=== PATIENT | male | born 1965 | race Caucasian/White ===

== ENCOUNTER 2019-11-28 08:48 | Outpatient (CLI) | payer BC, SELFPAY ==
--- NOTE | 2019-11-28 10:00 | EST_ITS ---
Patient Info Name: Anil Astudillo Age: 54 years : 1965 Gender: Male Ht: 71 in Wt: 210 lbs BSA: 2.21 m2 Exam Date: 11/28/2019 9:57 AM Exam Location: [facility] Stress Patient Status: Outpatient Admit Date: 11/28/2019 Staff Ordering Physician: Kuldip Benitez PA-C Attending Provider: Kuldip Benitez PA-C Exercise Technologist: Charlotte Hennessy RDCS Exercise Physician: Herb Foreman DO Exam Type: CA stress test treadmill Study Info Indications R07.89 - Other chest pain A treadmill exercise stress test was performed. Summary 1. 1. Negative Eric exercise stress test for ischemic ST changes by ECG criteria. 2. 2. Good functional capacity, achieving 12 METs of workload. 3. 3. Appropriate HR response to exercise. 4. 4. Appropriate HR recovery at 1 minute post exercise. 5. 5. No imaging with stress testing. 6. 6. Patient informed of the above results. Protocol: Eric Stress ECG Details Stage: REST Duration (min): 4 min : 23 sec Speed (mph): 0.0 Grade (%): 0 HR (bpm): 66 SBP (mmHg): 118 DBP (mmHg): 87 METS: --- Stage: REST Duration (min): 4 min : 49 sec Speed (mph): 0.0 Grade (%): 0 HR (bpm): 65 SBP (mmHg): 118 DBP (mmHg): 87 METS: --- Stage: REST Duration (min): 10 min : 40 sec Speed (mph): 0.0 Grade (%): 0 HR (bpm): 79 SBP (mmHg): 118 DBP (mmHg): 87 METS: --- Stage: STAGE 1 Duration (min): 1 min : 0 sec Speed (mph): 1.7 Grade (%): 10 HR (bpm): 102 SBP (mmHg): 118 DBP (mmHg): 87 METS: --- Stage: STAGE 1 Duration (min): 2 min : 0 sec Speed (mph): 1.7 Grade (%): 10 HR (bpm): 106 SBP (mmHg): 118 DBP (mmHg): 87 METS: --- Stage: STAGE 1 Duration (min): 3 min : 0 sec Speed (mph): 1.7 Grade (%): 10 HR (bpm): 105 SBP (mmHg): 128 DBP (mmHg): 82 METS: --- Stage: STAGE 2 Duration (min): 1 min : 0 sec Speed (mph): 2.5 Grade (%): 12 HR (bpm): 115 SBP (mmHg): 128 DBP (mmHg): 82 METS: --- Stage: STAGE 2 Duration (min): 2 min : 0 sec Speed (mph): 2.5 Grade (%): 12 HR (bpm): 112 SBP (mmHg): 156 DBP (mmHg): 72 METS: --- Stage: STAGE 2 Duration (min): 3 min : 0 sec Speed (mph): 2.5 Grade (%): 12 HR (bpm): 119 SBP (mmHg): 156 DBP (mmHg): 72 METS: --- Stage: STAGE 3 Duration (min): 1 min : 0 sec Speed (mph): 3.4 Grade (%): 14 HR (bpm): 130 SBP (mmHg): 153 DBP (mmHg): 86 METS: --- Stage: STAGE 3 Duration (min): 2 min : 0 sec Speed (mph): 3.4 Grade (%): 14 HR (bpm): 138 SBP (mmHg): 153 DBP (mmHg): 86 METS: --- Stage: STAGE 3 Duration (min): 3 min : 0 sec Speed (mph): 3.4 Grade (%): 14 HR (bpm): 144 SBP (mmHg): 156 DBP (mmHg): 102 METS: --- Stage: STAGE 4 Duration (min): 1 min : 0 sec Speed (mph): 4.2
== END 2019-11-28 08:49 | disposition home or self-care (01) ==
LOC: ANHCARD 08:55
PROVIDERS: PCP Internal Medicine; Visit Provider Physician Assistant
DX: R07.89 Other chest pain (principal)
CPT/HCPCS: 93017

== ENCOUNTER 2021-01-07 09:29 | Outpatient (CLI) | payer BC, SELFPAY | END 2021-01-07 09:30 | disposition home or self-care (01) | LOC: ANHCOVIDVC 09:29 | PROVIDERS: PCP Internal Medicine | DX: Z23 Encounter for immunization (principal) | CPT/HCPCS: 0001A; 91300 ==

== ENCOUNTER 2021-01-28 09:29 | Outpatient (CLI) | payer BC, SELFPAY | END 2021-01-28 09:30 | disposition home or self-care (01) | LOC: ANHCOVIDVC 09:29 | PROVIDERS: PCP Internal Medicine | DX: Z23 Encounter for immunization (principal) | CPT/HCPCS: 0002A; 91300 ==

== ENCOUNTER 2023-03-17 19:14 | Emergency (ER) | payer BC, SELFPAY ==
[2023-03-17 19:21] VITALS: BP 140/92; PULSE 89; RESP 18; TEMP 37; O2SAT 98
--- NOTE | 2023-03-17 19:24 | ED.MALEGU ---
HPI - Male Genitourinary General Chief complaint: Urogenital-Male Stated complaint: Male Urogenital Source: patient Mode of arrival: ambulatory Limitations: no limitations History of Present Illness HPI Narrative: Patient is a 57-year-old male who presents with intermittent flank pain and blood in urine since . Patient states morning he noticed pink tinged urine in the toilet. He moved his daughter that day and was having low back pain and increasingly dark urine throughout the day. Sunday he noticed to clots in urine. Patient called primary an urologist on Sunday but they do not return to school until late in the afternoon. Patient states since clots passed his urine has been clear and has not had any pain until this evening. Reports 1 episode of left low back pain that has since subsided. Denies any fever, chills, nausea, vomiting. Related Data Home Medications Medication Instructions Recorded Confirmed aspirin 81 mg tablet,delayed 81 mg PO DAILY 09/17/19 03/17/23 release (Adult Low Dose Aspirin) ascorbic acid (vitamin C) 500 mg 500 mg PO DAILY 09/07/21 01/29/23 capsule multivitamin 1 tablet PO DAILY 09/07/21 03/17/23 cholecalciferol (vitamin D3) 10 10 mcg PO DAILY 03/14/22 03/17/23 mcg (400 unit) capsule Allergies Allergy/AdvReac Type Severity Reaction Status Date / Time No Known Allergies Allergy Verified 03/17/23 19:25 Review of Systems Review of Systems: All systems reviewed & are unremarkable except as noted in HPI and below Constitutional: Constitutional: Denies chills, Denies fever(s), Denies headache(s), Denies malaise and Denies weakness Eyes: Eyes: Denies change in vision, Denies eye discharge and Denies irritation ENT: Denies otalgia, Denies headache(s), Denies nasal congestion, Denies nasal discharge, Denies sinus pain and Denies sore throat Cardiovascular: Cardiovascular: Denies chest pain, Denies edema, Denies palpitations and Denies dyspnea Respiratory: Respiratory: Denies cough and Denies dyspnea Gastrointestinal: Gastrointestinal: Denies abdominal pain, Denies diarrhea, Denies nausea and Denies vomiting Genitourinary: Genitourinary: Reports hematuria, Denies dysuria, Denies flank pain and Denies urinary frequency Musculoskeletal: Musculoskeletal: Denies back pain and Denies numbness Integumentary/Breasts: Skin/Breast: Denies pruritus and Denies rash Neurologic: Denies headache(s), Denies numbness and Denies weakness Psychiatric: Psychiatric: Reports no additional psychiatric complaints Endocrine: Endocrine: Denies palpitations PMFSH Past Medical History Medical History CKD (chronic kidney disease) Thyroid disease Family History Family History Mother Hypertension Sibling Asthma Family history of allergic disorder Father Patient's father is Social History Social History Smoking packs per day: 0.25 Smoking cigarettes per day: 5.0 Years smoked: 30 Smoking pack-years: 7.50 Smoking status: Current some day smoker Second hand tobacco smoke exposure: No Smoking end date: 10/22/14 Alcohol intake: current Lack of Transportation: No Lack of Food: Never True Current Housing: I Have Housing Concerned About Future Housing: No Difficulty Paying Gas/Electric Bills: No Difficulty Paying for Meds: No Currently Unemployed: No Education: Bachelor's Degree Difficulty w/ Childcare or Family Care: No Comments At time of signature, agree with nursing past medical, surgical, social and family history. There is no relevant family history pertinent to the presenting complaint. Exam Const: General: cooperative, healthy appearing, comfortable, no acute distress and well nourished Nutritional Appearance: well nourished Orientation/consciousness: pat
== END 2023-03-17 19:43 | disposition home or self-care (01) ==
PROVIDERS: Emergency Provider Nurse Practitioner Family; PCP Internal Medicine
DX: R31.9 Hematuria, unspecified (principal); Z87.891 Personal history of nicotine dependence; N18.9 Chronic kidney disease, unspecified; E07.9 Disorder of thyroid, unspecified; Z79.82 Long term (current) use of aspirin
CPT/HCPCS: 81003; 87086; 99213; G0463

== ENCOUNTER 2023-04-27 09:58 | Outpatient (CLI) | payer BC, SELFPAY ==
--- NOTE | ~2023-04-27 | XR_ITS ---
Supine and upright views of the abdomen Clinical history: Left renal stone COMPARISON: 03/27/2023 Findings: Bowel gas pattern is nonspecific. No evidence for obstruction or free air. Left lower pole renal stone is similar to prior exam. Osseous structures are intact. Impression: Stable left lower pole renal stone. Reviewed, dictated and finalized at [facility]. Impression: Stable left lower pole renal stone.
== END 2023-04-27 09:59 | disposition home or self-care (01) ==
PROVIDERS: PCP Internal Medicine; Visit Provider Urology
DX: N20.0 Calculus of kidney (principal)
CPT/HCPCS: 74018

== ENCOUNTER 2023-05-03 10:46 | Outpatient (CLI) | payer BC, SELFPAY ==
--- NOTE | ~2023-05-03 | XR_ITS ---
EXAMINATION:XR cervical spine 4-5V DATE: 05/03/2023 11:04 INDICATION: Cervical radiculopathy TECHNIQUE: AP, lateral, lateral swimmers and odontoid views of the cervical spine are provided. COMPARISON: None FINDINGS: There is straightening of the cervical spine which can be positional or due to muscular spa sm. Alignment is normal. The odontoid process is intact. No fracture is identified. The vertebral bod y heights are normal. There is moderate loss of intervertebral disc space height at C3-4 and C6-7. Sm all degenerative osteophytes project from the anterior endplates of multiple vertebral bodies. There is multilevel mild facet and uncovertebral joint osteoarthritis. Prevertebral soft tissues are normal . IMPRESSION: 1. Mild to moderate cervical spondylosis without acute findings. Reviewed, dictated and finalized at location L.
--- NOTE | ~2023-05-03 | XR_ITS ---
Left Shoulder Technique: AP and scapular Y views were obtained. Clinical History: Pain Findings: No fracture or dislocation is seen. Osseous alignment is anatomic. The glenohumeral and acr omioclavicular joint spaces are preserved. Soft tissues are unremarkable. Impression: Unremarkable left shoulder radiographs. Reviewed, dictated and finalized at [facility]. Impression: Unremarkable left shoulder radiographs.
== END 2023-05-03 10:47 | disposition home or self-care (01) ==
LOC: ANHIMG 10:48
PROVIDERS: PCP Internal Medicine; Visit Provider Physician Assistant
DX: M54.12 Radiculopathy, cervical region (principal); M43.02 Spondylolysis, cervical region
CPT/HCPCS: 72050; 73030

== ENCOUNTER → 2023-07-17 12:47 | Outpatient (CLI) | payer BC, SELFPAY ==
--- NOTE | ~2023-07-17 | MR_ITS ---
EXAMINATION: MR cervical spine wo con DATE: 07/17/2023 13:36 INDICATION: Cervical radiculopathy. TECHNIQUE: Magnetic resonance imaging (MRI) of the cervical spine was performed without intravenous c ontrast. COMPARISON: Cervical spine radiographs 05/03/2023 FINDINGS: There is 5 degrees levocurvature of cervical spine. Vertebral body heights are normal. Ther e is mildly decreased disc height at C6-C7. The spinal cord signal intensity is normal. The following disc levels are specifically discussed: C2-C3: The disc does not extend beyond the endplate margin. There is mild right uncovertebral joint o steoarthritis. There is severe right and mild left facet joint osteoarthritis. There is mild right ne ural foraminal stenosis. There is no central canal stenosis. C3-C4: There is a central protrusion. There is severe right and moderate left uncovertebral joint ost eoarthritis. There is mild bilateral facet joint osteoarthritis. There is moderate right and mild lef t neural foraminal stenosis. There is mild central canal stenosis. C4-C5: There is a central extrusion. There is mild bilateral uncovertebral joint osteoarthritis. Ther e is mild bilateral facet joint osteoarthritis. There is mild right neural foraminal stenosis. There is mild central canal stenosis. C5-C6: There is a left central extrusion. There is mild bilateral uncovertebral joint osteoarthritis. There is moderate right and mild left facet joint osteoarthritis. There is mild bilateral neural for aminal stenosis. There is mild central canal stenosis. C6-C7: The disc is bulging. There is moderate right and severe left uncovertebral joint osteoarthriti s. There is moderate right and mild left facet joint osteoarthritis. There is mild right and moderate left neural foraminal stenosis. There is mild central canal stenosis. C7-T1: The disc does not extend beyond the endplate margin. There is no uncovertebral joint osteoarth ritis. There is moderate right and mild left facet joint osteoarthritis. There is no neural foraminal stenosis. There is no central canal stenosis. IMPRESSION: 1. Moderate cervical spondylosis. Reviewed, dictated and finalized at location E.
== END ==
PROVIDERS: PCP Orthopaedic Surgery; Visit Provider Orthopaedic Surgery
DX: M43.02 Spondylolysis, cervical region (principal); M54.12 Radiculopathy, cervical region
CPT/HCPCS: 72141

== ENCOUNTER 2023-10-30 10:41 | Outpatient (CLI) | payer BC, SELFPAY ==
--- NOTE | ~2023-10-30 | XR_ITS ---
Supine and upright views of the abdomen Clinical history: Kidney stone COMPARISON: 04/27/2023 Findings: Bowel gas pattern is nonspecific. No evidence for obstruction or free air. Stable left lowe r pole renal stone noted. Osseous structures are intact. Impression: Stable left lower pole renal stone. Reviewed, dictated and finalized at [facility]. ETY REPORTER Impression: Stable left lower pole renal stone.
== END 2023-10-30 10:42 | disposition home or self-care (01) ==
PROVIDERS: PCP Internal Medicine; Visit Provider Urology
DX: N20.0 Calculus of kidney (principal)
CPT/HCPCS: 74018

== ENCOUNTER 2024-10-29 08:22 | Outpatient (CLI) | payer BC, SELFPAY ==
--- NOTE | ~2024-10-29 | XR_ITS ---
XR abdomen/kub 1V Ordering provider: Harry Rodriguez MD History: . KIDNEY STONE ON LEFT SIDE . Comparison: None. FINDINGS: BOWEL: Fecal material is loaded in the colon suggestive of constipation. Nonobstructive bowel gas pat tern. ORGANOMEGALY: None. SIGNIFICANT PATHOLOGIC CALCIFICATIONS: Left kidney stone. OTHER: No free air is seen under the diaphragm. IMPRESSION: NO ACUTE ABDOMINAL FINDINGS. Left kidney stone. Constipation. Reviewed, dictated and finalized at location A. INSTRUCTOR
== END 2024-10-29 08:23 | disposition home or self-care (01) ==
PROVIDERS: Visit Provider Urology
DX: N20.0 Calculus of kidney (principal); R19.7 Diarrhea, unspecified
CPT/HCPCS: 74018

== ENCOUNTER 2025-02-26 10:13 | Outpatient (CLI) | payer BC, SELFPAY ==
--- NOTE | ~2025-02-26 | XR_ITS ---
XR abdomen/kub 1V 02/26/2025 10:38 INDICATION: Left renal stone TECHNIQUE: KUB COMPARISON: 10/29/2024 FINDINGS: Bowel gas pattern is normal. There is no evidence of free air, mass, organomegaly, ascites or obstruction. There is a 5 mm left renal stone. The bones appear intact. IMPRESSION: 1: Left nephrolithiasis. Reviewed, dictated and finalized at location A. IMPRESSION: 1: Left nephrolithiasis.
--- OUTSIDE RECORDS SUMMARY | 2025-02-26 10:33 | XMS_ITS | Continuity of Care Document ---
Author Organization [facility] Address [address] [place] [address] [facility] [address] [place] [address] Phone Care Team Providers Care Lens Cementer Name Role Phone Dl Thakkar Unavailable Unavailable Procedures Procedure Date Office/outpatient Visit, [facility] Advance Directives Directive Yes / No Effective Date File Name No Information Encounters Encounter Description Practice Location Reason(s) For Visit Diagnoses Date Provider Providers Copied on Encounter Office/outpat ient Visit, [facility], [address] [place] [address] [address], [place], [place], [id number], tel:[phone] [facility] No Information [phone] [facility] [address], [place], [address], [place]. tel:[phone] Referring Provider: Juan Antonio Trujillo MD, [address] [place], [address]. tel:[phone] Family History Family Member Type Diagnosis Age At Onset No Information Payers Payer name Insurance type Covered republican ID Authoriza tion(s) No Information Social History Type Description Quantity Date Captured Comments Sex Male Smoking Status No Information Chief Complaint And Reason For Visit No Information Reason For Referral Reason For Referral No Information History Of Present Illness Encounter Date Complaint History Of Prese nt Illness No Information Functional Status Date Functional Assessmen t No Information Instructions Date Instruction Additional Infor mation No Information Assessments Type Assessment Date No Information Patient Care Teams Name Effective Dates (start - stop) Status Members No Information
== END 2025-02-26 10:14 | disposition home or self-care (01) ==
PROVIDERS: PCP Internal Medicine; Visit Provider Nurse Practitioner Family
DX: N20.0 Calculus of kidney (principal)
CPT/HCPCS: 74018

== ENCOUNTER 2025-06-04 15:19 | Outpatient (CLI) | payer BC, SELFPAY ==
--- NOTE | ~2025-06-04 | XR_ITS ---
XR abdomen/kub 1V 06/04/2025 15:38 Indication: Left renal stone Procedure: KUB Comparison: Comparison to multiple prior studies sequentially, with oldest reviewed study dated 04/2023. Findings: There are multiple stones in the lower pole left kidney. Bowel gas pattern is nonobstructiv e. Mild dextrocurvature of the thoracolumbar spine, possibly positional. Pelvic rings intact. Impression: 1: Left nephrolithiasis. Reviewed, dictated and finalized at location A. Impression: 1: Left nephrolithiasis.
--- OUTSIDE RECORDS SUMMARY | 2025-06-04 15:24 | XMS_ITS | Continuity of Care Document ---
Author Organization [facility] Address [address] [place] [address] [facility] [address] [place] [address] Phone Care Team Providers Care Wastewater Supervisor Name Role Phone Dl Thakkar Unavailable Unavailable Procedures Procedure Date Office/outpatient Visit, [facility] Advance Directives Directive Yes / No Effective Date File Name No Information Encounters Encounter Description Practice Location Reason(s) For Visit Diagnoses Date Provider Providers Copied on Encounter Office/outpat ient Visit, [facility], [address] [place] [address] [address], [place], [place], [id number], tel:[phone] [facility] No Information [address] [facility] [address], [address], [place]. tel:[phone] Referring Provider: Juan Antonio Trujillo MD, [address] [place], [address]. tel:[phone] Family History Family Member Type Diagnosis Age At Onset No Information Payers Payer name Insurance type Covered alliance party ID Authoriza tion(s) No Information Social History [...]
== END 2025-06-04 15:20 | disposition home or self-care (01) ==
PROVIDERS: PCP Internal Medicine; Visit Provider Nurse Practitioner Family
DX: N20.0 Calculus of kidney (principal)
CPT/HCPCS: 74018

== ENCOUNTER 2025-07-10 08:04 | Outpatient (CLI) | payer BC, SELFPAY ==
--- NOTE | 2025-07-10 08:12 | ECG_ITS ---
Test Date: 2025-07-10 08:28:15 Measurements Intervals [place] Rate: 67 P: 76 VA: 214 QRS: 9 QRSD: 96 T: 29 QT: 387 QTc: 409 Interpretive Statements SINUS RHYTHM WITH FIRST DEGREE AV BLOCK ABNORMAL ECG WARNING: DATA QUALITY MAY AFFECT INTERPRETATION No previous ECG available for comparison Electronically Signed On 07-10-2025 13:02:02 CDT by Vinny Meng M.D.
[2025-07-10 08:46] LABS: INR 1.0; Prothrombin Time 13.5 Seconds (11.1-14.7)
[2025-07-10 08:47] LABS: Partial Thromboplastin Time 25.9 Seconds (22.3-36.8)
== END 2025-07-10 08:05 | disposition home or self-care (01) ==
LOC: ANHSURGERY 08:07
PROVIDERS: PCP Internal Medicine; Visit Provider Urology
DX: N20.0 Calculus of kidney (principal); E78.5 Hyperlipidemia, unspecified; Z01.818 Encounter for other preprocedural examination
CPT/HCPCS: 36415; 85610; 85730; 87086; 93005

== ENCOUNTER 2025-07-17 00:02 | Day surgery (SDC) | payer BC, SELFPAY ==
--- NOTE | 2025-04-16 08:42 | P.HP_ITS ---
History of Present Illness History of Present Illness Consent: Risks, benefits, and alternatives have been discussed and questions answered. Patient agrees to proceed with procedure. Chief complaint: left renal stone Narrative: Anil Astudillo is a 59 year old male is status post left ESWL in March 2023. ?He was left with a small fragment in the lower pole which is growing slowly. ?He may be slightly symptomatic but we ultimately decided against repeat interventi on. ?He will follow-up in 6 months with another KUB. ?If intervention is needed we should consider ureteroscopy with laser lithotripsy as it did not completely yoana with ESWL Addendum: Patient states he wants to get his ureteroscopy with laser lithotripsy done in the middle to end of March. I will contact surgery scheduling to get this set up for him. KUB demonstrates a 5-6 mm left renal calculus. After discussion of options he has elected for cystoscopy with left ureteroscopy, laser lithotripsy with stone extraction, possible retrograde pyelogram and stent placement Review of Systems Review of Systems: All systems reviewed & are unremarkable except as noted in HPI and below PMFSH Past Medical History Medical History Enlarged prostate BMI 28.0-28.9,adult Viral syndrome Pure hypercholesterolemia Other fatigue Other dorsalgia Neck pain History of renal stone Gastro-esophageal reflux disease without esophagitis Encounter for screening for malignant neoplasm of prostate Encounter for screening colonoscopy Dietary counseling and surveillance (02/16/17) Cough Thyroid disease CKD (chronic kidney disease) Surgical History Surgical History History of lithotripsy History of tonsillectomy History of appendectomy Family History Family History (Updated 04/13/25 @ 15:29 by JUAN LUIS Regalado) Mother Hypertension Sibling Asthma Family history of allergic disorder Father Patient's father is Sibling , Parkinson's disease No problems noted. Social History Social History (Updated 04/13/25 @ 15:30 by JUAN LUIS Regalado) Smoking packs per day: 0.25 Smoking cigarettes per day: 5.0 Years smoked: 30 Smoking pack-years: 7.50 Smoking status: Former smoker (Is using nicotine pouch ) Second hand tobacco smoke exposure: No Alcohol intake: current Alcohol use details: rarely Substance use: never Substance use type: does not use Do You Feel Safe in your Home?: Yes Lack of Transportation: No Lack of Food: Never True Current Housing: I Have Housing Concerned About Future Housing: No Difficulty Paying Gas/Electric Bills: No Difficulty Paying for Meds: No Currently Unemployed: No Education: Bachelor's Degree Difficulty w/ Childcare or Family Care: No Living arrangements: alone Occupation/Education: retired Additional occupation/education comments: [employer] room/[employer] Gender identity (if verbalized by the patient): Male Meds Home Medications and Allergies Home Medications ?Medication ?Instructions ?Recorded ?Confirmed ?Type aspirin 81 mg tablet,delayed 81 mg PO DAILY 09/17/19 04/13/25 History release (Adult Low Dose Aspirin) ascorbic acid (vitamin C) 500 mg 500 mg PO DAILY 09/07/21 04/13/25 History capsule multivitamin 1 tablet PO DAILY 09/07/21 04/13/25 History finasteride 5 mg tablet 5 mg PO DAILY 05/22/23 04/13/25 History atorvastatin 20 mg tablet 20 mg PO DAILY #90 tabs 09/25/24 04/13/25 Rx levothyroxine 150 mcg tablet See Rx Instructions .Route 03/26/25 04/13/25 Rx .COMPLEX #90 tabs Allergies Allergy/AdvReac Type Severity Reaction Status Date / Time No Known Allergies Allergy Verified 04/13/25 13:01 Exam Const: General: no acute distress Resp: Effort & Inspection: normal respiratory effort GI: Inspection: non-distended GI Palp: No abdominal tenderness and No Guarding due to palpation present (GI) Auscultation: normal bowel sounds Assessment and Plan Assessment and plan (1) Left renal stone: Code(s): N20.0 - Calculus of kidney Status: Acute Assessment and Plan: * Cystoscopy with left ureteroscopy, laser lithotripsy with stone extraction, possible retrograde pyelogram and stent placement
--- OUTSIDE RECORDS SUMMARY | 2025-05-07 00:59 | XMS_ITS | Continuity of Care Document ---
Author Organization [facility] Address [address] [place] [address] [facility] [address] [place] [address] Phone Care Team Providers Care Service Station Attendant Name Role Phone Dl Thakkar Unavailable Unavailable Procedures Procedure Date Office/outpatient Visit, [facility] Advance Directives Directive Yes / No Effective Date File Name No Information Encounters Encounter Description Practice Location Reason(s) For Visit Diagnoses Date Provider Providers Copied on Encounter Office/outpat ient Visit, [facility], [address] [place] [address] [address], [place], [place], [id number], tel:[phone] [facility] No Information [phone] [facility] [address], [address], [place]. tel:[phone] Referring Provider: Juan Antonio Trujillo MD, [address] [place], [address]. tel:[phone] Family History Family Member Type Diagnosis Age [...]
[2025-07-07 14:01] VITALS: BMI 29.5
--- NOTE | 2025-07-07 14:17 | PC.NURSE ---
Addendum entered by Sawyer Florence RN 07/07/25 14:38: Procedure time 829 Original Note: Report to the Outpatient Waiting Room, entrance under the green pavilion located off [facility], at time _0630_ on date _[id number]_. Planned Procedure Time: __.? Time changes happen often and if your time is changed the preop area will call you the afternoon before. - You and your visitor will be asked to self-screen and do not enter if you have any COVID symptoms. Please call surgeon if you need to reschedule. - A mask is optional within the hospital at this time. Patients may have clear liquids (water, carbonated beverages, clear teas, apple juice) until 3 hours prior to surgery with a maximum of 20 ounces. - No food from midnight until time of surgery and no smoking, or chewing tobacco (or any form of nicotine). No chewing gum, candy or mints. Take only the following medications with a SIP of water on the morning of surgery: __Levothyroxine DO NOT STOP ANY OF YOUR OTHER PRESCRIPTION MEDICATIONS PRIOR TO SURGERY EXCEPT THE FOLLOWING Hold all vitamins and supplements for 3 days per anesthesiologist. Medications to discontinue per physician Please call Dr Rodriguez office to inquire about aspirin. Date to take last dose Please no make-up, nail malay, hairspray, perfume, deodorant, or body powder the day of surgery.? No jewelry (including any body piercings) or valuables the day of surgery, leave them at home.? Please take a shower or bath the night before, or the morning of, surgery with an antibacterial soap.? Wear comfortable, loose fitting clothing.? - Jewelry must be removed prior to entering the operating room.? Rings and piercings that are not removed may be cut off. - The hospital will not accept responsibility for valuables.? - Please leave all valuables, including medications, at home the day of surgery. If you are going home after surgery, a licensed commercial collections driver must drive you home.? - NO public transportation without another adult if you receive anesthesia. - We recommend that an adult stay with you for 24 hours following discharge. - We also recommend that you do not drive, make important decision, drink alcoholic beverages, or take any drugs that were not prescribed by your health care provider for at least 24 hours after your discharge time. Follow any additional instructions given to you from your surgeon. Telephone instructions given to __David__and asked if any additional questions and then verbalized understanding. Patient advised to call surgeon office or pre surgery nurse liaison [phone] if any additional questions.
--- NOTE | 2025-07-13 07:33 | P.HP_ITS ---
History of Present Illness History of Present Illness Consent: Risks, benefits, and alternatives have been discussed and questions answered. Patient agrees to proceed with procedure. Chief complaint: left renal stone Narrative: Anil Astudillo is a 59 year old male History of Present Illness (Missy Faye APRN; 06/08/2025 11:21 PM) The patient is a 59 year old male being seen for urolithiasis. This is a 6-month follow-up. The patient reports no pain associated with stones at this time. In the past this patient has had one prior stone and these stones have required ESWL (04/2023). Note for Kidney Stone: . . 02/26/2025 Patient presents to clinic today with complaints of intermittent hematuria through the month of January as well as lower abdominal pain across both quadrants and low back pain. ???Patient states for the last at least 2 weeks his symptoms have improved greatly and he has not had any discomfort or hematuria. Patient reports he would like to schedule lithotripsy for this stone in mid to late March. ?UA today is unremarkable for infection or blood. 06/04/25: Patient presents for evaluation ?for kidney stone. ?He reports ?suprapubic discomfort and hematuria (2-3 episodes) that started over the weekend. Pain was 6/10 at worst. Does have intermittent pain in left flank. Also experienced increased urgency. Denies dysuria, obstructive urinary symptoms, fever/chills, nausea/vomiting, dizziness/lightheadedness. Currently he is asymptomatic, however he is now interested in further treatment for ?known renal stones given his intermittent symptoms. He has talked with Dr. Rodriguez ?about this. Imaging demonstrates a size 5-6 mm calcified stone in his left lower pole with several tiny peripheral stones around. Review of Systems Review of Systems: All systems reviewed & are unremarkable except as noted in HPI and below PMFSH Past Medical History Medical History (Reviewed 04/13/25 @ 15:28 by Melina Waters [facility]) Enlarged prostate BMI 28.0-28.9,adult Viral syndrome Pure hypercholesterolemia Other fatigue Other dorsalgia Neck pain History of renal stone Gastro-esophageal reflux disease without esophagitis Encounter for screening for malignant neoplasm of prostate Encounter for screening colonoscopy Dietary counseling and surveillance (02/16/17) Cough Thyroid disease CKD (chronic kidney disease) Surgical History Surgical History History of lithotripsy History of tonsillectomy History of appendectomy Family History Family History (Updated 04/13/25 @ 15:29 by JUAN LUIS Regalado) Mother Hypertension Sibling Asthma Family history of allergic disorder Father Patient's father is Sibling , Parkinson's disease No problems noted. Social History Social History (Updated 04/13/25 @ 15:30 by JUAN LUIS Regalado) Smoking packs per day: 1 Smoking cigarettes per day: 20.0 Years smoked: 25 Smoking pack-years: 25.00 Smoking status: Former smoker Tobacco type: cigarettes Second hand tobacco smoke exposure: No Smoking end date: 04/06/25 Alcohol intake: former Alcohol use details: rarely Substance use: never Substance use type: does not use Do You Feel Safe in your Home?: Yes Lack of Transportation: No Lack of Food: Never True Current Housing: I Have Housing Concerned About Future Housing: No Difficulty Paying Gas/Electric Bills: No Difficulty Paying for Meds: No Currently Unemployed: No Education: Bachelor's Degree Difficulty w/ Childcare or Family Care: No Living arrangements: with family Occupation/Education: retired 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 Gender identity (if verbalized by the patient): Male Spiritual care concerns: No Meds Home Medications and Allergies Home Medications ?Medication ?Instructions ?Recorded ?Confirmed ?Type aspirin 81 mg tablet,delayed 81 mg PO DAILY 09/17/19 0 07/07/25 History release (Adult Low Dose Aspirin) ascorbic acid (vitamin C) 500 mg 500 mg PO DAILY 09/0707/07/25 History capsule multivitamin 1 tablet PO DAILY 09/07/21 0 07/07/25 History finasteride 5 mg tablet 5 mg PO DAILY 05/22/2307/07 History atorvastatin 20 mg tablet 20 mg PO DAILY #90 tabs 03/1407/07/25 Rx levothyroxine 150 mcg tablet See Rx Instructions .Rout e 03/26/25 07/07/25 Rx .COMPLEX #90 tabs Allergies Allergy/AdvReac Type Severity Reaction Status Date / Time No Known Allergies Allergy Verified 07/07/25 14:00 Exam Const: General: no acute distress Resp: Effort & Inspection: normal respiratory effort GI: Inspection: non-distended GI Palp: No abdominal tenderness and No Guarding due to palpation present (GI) Auscultation: normal bowel sounds Assessment and Plan Assessment and plan (1) Left renal stone: Code(s): N20.0 - Calculus of kidney Status: Acute Assessment and Plan: * Left ESWL
[2025-07-17] VITALS (10 sets, daily range): BP systolic 104–143; BP diastolic 56–91; PULSE 54–89; RESP 13–20; TEMP 36.2–36.7; O2SAT 97–100
--- NOTE | ~2025-07-17 | XR_ITS ---
EXAMINATION: XR abdomen/kub 1V DATE: 07/17/2025 06:49 INDICATION: ESWL TECHNIQUE: A supine view of the abdomen on 2 radiographs was obtained. COMPARISON: 06/04/2025 FINDINGS: Moderate amount of stool and air in nondilated large bowel. There is a 1.0 cm calcification projecting of the left kidney. There are two 3 mm calcifications in the right hemipelvis. IMPRESSION: 1. Nonspecific abdomen with a moderate amount of stool. 2. There is a 1.0 cm calcification projecting of the left kidney similar to the study from 06/04/2025 Reviewed, dictated and finalized at location Q.
--- NOTE | 2025-07-17 06:32 | WPDHPUPDATE1 ---
History and Physical Update Update Date/Time: 07/17/25 06:32 History and Physical has been reviewed, including an updated exam of the patient. There are NO changes in the patient's condition. Risks, benefits, and alternatives have been discussed and questions answered. Patient agrees to proceed with procedure.
--- NOTE | 2025-07-17 07:09 | P.PNAN_ITS ---
Anes - Initial Pre Proc Eval Procedure: Operation Date: 07/17/25 08:30 Proposed Procedures p Left Extracorporeal Shock Wave Lithotripsy - Harry Rodriguez MD Date/Time: 07/17/25 07:09 Surgeon: Harry Rodriguez MD Pre Op Diagnosis: left renal stone Patient Data Age: 59 Gender: M Height: 1.78 m Weight: 93.2 kg Allergies Allergy/AdvReac Type Severity Reaction Status Date / Time No Known Allergies Allergy Verified 07/07/25 14:00 Home Medications ?Medication ?Instructions ?Recorded ?Confirmed ?Type aspirin 81 mg tablet,delayed 81 mg PO DAILY 09/17/19 0 07/07/25 History release (Adult Low Dose Aspirin) ascorbic acid (vitamin C) 500 mg 500 mg PO DAILY 09/0707/07/25 History capsule multivitamin 1 tablet PO DAILY 09/07/21 0 07/07/25 History finasteride 5 mg tablet 5 mg PO DAILY 05/22/2307/07 History atorvastatin 20 mg tablet 20 mg PO DAILY #90 tabs 03/1407/07/25 Rx levothyroxine 150 mcg tablet See Rx Instructions .Rout e 03/26/25 07/07/25 Rx .COMPLEX #90 tabs Patient hx anesthesia problems: none Family hx anesthesia problems: none Results Review: All pre-operative results and documents have been reviewed as part of the pre- operative evaluation. [facility] Past Medical History Medical History Enlarged prostate BMI 28.0-28.9,adult Viral syndrome Pure hypercholesterolemia Other fatigue Other dorsalgia Neck pain History of renal stone Gastro-esophageal reflux disease without esophagitis Encounter for screening for malignant neoplasm of prostate Encounter for screening colonoscopy Dietary counseling and surveillance (02/16/17) Cough Thyroid disease CKD (chronic kidney disease) Surgical History Surgical History History of lithotripsy History of tonsillectomy History of appendectomy Family History Family History Mother Hypertension Sibling Asthma Family history of allergic disorder Father Patient's father is Sibling , Parkinson's disease No problems noted. Social History Social History Smoking packs per day: 1 Smoking cigarettes per day: 20.0 Years smoked: 25 Smoking pack-years: 25.00 Smoking status: Former smoker Tobacco type: cigarettes Second hand tobacco smoke exposure: No Smoking end date: 04/06/25 Alcohol intake: former Alcohol use details: rarely Substance use: never Substance use type: does not use Do You Feel Safe in your Home?: Yes Lack of Transportation: No Lack of Food: Never True Current Housing: I Have Housing Concerned About Future Housing: No Difficulty Paying Gas/Electric Bills: No Difficulty Paying for Meds: No Currently Unemployed: No Education: Bachelor's Degree Difficulty w/ Childcare or Family Care: No Living arrangements: with family Occupation/Education: retired 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 Informed Consent: The patient's anesthetic plan and its attendant risks and benefits were discussed with the patient/family/POA. Questions were solicited and answers provided to the satisfaction of the patient/family/POA.
[2025-07-17] MEDS: LACTATED RINGERS 1,000 ML 30 ML IV CONT ×3 (07:15→09:51)
[2025-07-17] MEDS: ceFAZolin 2 GM in SODIUM CHLORIDE 0.9% IV 50 ML 100 ML IVPB (07:27)
--- NOTE | 2025-07-17 07:51 | W.PM.PROC2 ---
Procedure Note - Detailed Date of Procedure 07/17/25 Pre-op Diagnosis Left renal stone Post-op Diagnosis Same Procedure Performed Left ESWL Surgeon Harry Rodriguez MD Anesthesia General Description of Procedure The patient was brought to the operative suite where he was placed in the supine position on the Dornier lithotripsy table. The focal point of the lithotripter was placed at a 6-7mm left lower pole calculus. A total of 2500 shocks were delivered at a power setting of 4. There appeared to be good fragmentation of the stone. The patient tolerated the procedure well and was taken to the recovery room in good condition. Drains No Packing No Complications No immediate complications Condition Stable
[2025-07-17] MEDS: fentaNYL CITRATE INJ (*CRX) 100 MCG/2 ML VIAL 25 MCG IV PUSH ×2 (08:31→09:05)
[2025-07-17] MEDS: ONDANSETRON INJ 4 MG/2 ML VIAL IV PUSH (08:37)
[2025-07-17] MEDS: oxyCODONE HCL (*CRX) 5 MG TAB IR PO (09:32)
--- NOTE | 2025-07-17 10:03 | SUR.PHASEII ---
0982- This RN called anesthesia for low HR and pt. feeling lightheaded/dizzy. 0925- Dr. Mckeon to room to assess pt. 1000- HR now 62. Pt states he is feeling better.
== END 2025-07-17 10:28 | disposition home or self-care (01) ==
PROVIDERS: PCP Internal Medicine; Visit Provider Urology
PROC: (CPT 50590; principal; 2025-07-17 08:30)
DX: N20.0 Calculus of kidney (principal); N18.9 Chronic kidney disease, unspecified; E78.00 Pure hypercholesterolemia, unspecified; R53.83 Other fatigue; K21.9 Gastro-esophageal reflux disease without esophagitis; E07.9 Disorder of thyroid, unspecified; Z79.82 Long term (current) use of aspirin; Z98.890 Other specified postprocedural states; Z87.891 Personal history of nicotine dependence
CPT/HCPCS: 50590; 74018; J0690; A9270; J1100; J2003; J2250; J2405; J2704; J3010; J7120

== ENCOUNTER 2025-08-25 14:48 | Outpatient (CLI) | payer BC, SELFPAY ==
--- NOTE | ~2025-08-25 | XR_ITS ---
XR abdomen/kub 1V 08/25/2025 15:35 INDICATION: Benign prosthetic hypertrophy TECHNIQUE: KUB COMPARISON: None FINDINGS: Bowel gas pattern is normal. Moderate colonic fecal loading. There is no evidence of free air, mass, organomegaly, ascites or obstruction. No abnormal calculi are seen. The bones appear intact. IMPRESSION: 1: No acute abdominal abnormality identified. Reviewed, dictated and finalized at location O. NEERING DIRECTOR
== END 2025-08-25 14:49 | disposition home or self-care (01) ==
LOC: MICIMG 14:49
PROVIDERS: PCP Internal Medicine; Visit Provider Urology
DX: N40.0 Benign prostatic hyperplasia without lower urinary tract symptoms (principal)
CPT/HCPCS: 74018